=== PATIENT | female | born 1995 | race Caucasian/White ===

== ENCOUNTER 2017-05-17 20:37 | Emergency (ER) | payer OTHER, SELFPAY | END 2017-05-17 22:14 | disposition home or self-care (01) | PROVIDERS: Emergency Provider Emergency Medicine; Family Provider Emergency Medicine; Visit Provider Emergency Medicine | DX: O26.892 Other specified pregnancy related conditions, second trimester (principal); R10.2 Pelvic and perineal pain; Z3A.16 16 weeks gestation of pregnancy | CPT/HCPCS: 80053; 81001; 81025; 85025; 99283 ==

== ENCOUNTER → 2017-06-23 12:54 | Outpatient (CLI) | payer OTHER, SELFPAY ==
--- NOTE | 2017-06-23 14:00 | US_ITS ---
US OB /maternal detail, US OB f/u add gest: INDICATION: 20 gestation, anatomy scan ITS.REASON: 20 wk ob anatomy [id number] ORDERING PHYSICIAN: Rodrigo Lawler MD PATIENT AGE: 21 years TECHNIQUE: ultrasound transabdominal scanning. COMPARISON: No previous relevant studies. FINDINGS: There is a twin gestation present. Both fetuses are in breech presentation. There are 2 gestational sacs and 2 placentas. Fetus a is breech with a posterior placenta. Fetus is active and anatomy seen is within normal limits. Fetus B is breech with an anterior placenta active and with normal anatomy.. There is average amount fluid. The cervix appears satisfactory. Closed and measuring 4 cm in length. Fetus A: Complete survey performed and was unremarkable on the submitted images as in PACS. No discrete anomalies identified on survey imaging by technologist. Active fetus. Three-vessel cord with satisfactory umbilical cord insertion. 4- chamber heart noted. Survey of brain & ventricles. Face and neck survey unremarkable. Diaphragm and chest views unremarkable. Abdomen: Both kidneys noted and unremarkable. Stomach noted and satisfactory. Spine: Survey of the spine satisfactory with no anomalies identified nor imaged. Both arms and legs noted. Amniotic Fluid: Adequate. Maternal adnexa: No significant findings. Measurements: Average ultrasound age 20 weeks 2 days. Gestational Age 21 weeks 1 day. Estimated due date by ultrasound age 611/08/2017. Estimated weight 346 g which is 11% based on last menstrual period. BPD = 20 weeks 2 days OFD = 19 weeks 6 days HC = 19 weeks 2 days AC = 20 weeks 0 days FL = 21 weeks 1 day Heart Rate = 152 bpm Cerebellum = 20 weeks 3 days Humerus = 20 weeks 3 days HC/AC is 1.12. CI is 82%. FL/BPD is 74%. FL/AC is 24%. Fetus B: Complete survey performed and was unremarkable on the submitted images as in PACS. No discrete anomalies identified on survey imaging by technologist. Active fetus. Three-vessel cord with satisfactory umbilical cord insertion. 4- chamber heart noted. Survey of brain & ventricles. Face and neck survey unremarkable. Diaphragm and chest views unremarkable. Abdomen: Both kidneys noted and unremarkable. Stomach noted and satisfactory. Spine: Survey of the spine satisfactory with no anomalies identified nor imaged. Both arms and legs noted. Amniotic Fluid: Adequate. Maternal adnexa: No significant findings. Measurements: Average ultrasound age 20 weeks 3 days. Gestational Age 21 weeks 1 day. Estimated due date by ultrasound age 611/07/2017. Estimated weight 355 g grams. 15th percentile BPD = 20 weeks 4 days OFD = 20 weeks 5 days HC = 19 weeks 6 days AC = 20 weeks 6 days FL = 20 weeks 2 days Heart Rate = 156 BPM Cerebellum = 20 weeks 4 days Humerus = 20 weeks 3 days HC/AC is 1.10. CI is 79%. FL/BPD is 68%. FL/AC is 21%. IMPRESSION: There is a live twin gestation with an average ultrasound age of 20 weeks 2 days and an estimated due date of 11/07/2017. There has been adequate progression compared to an ultrasound of 04/12/2017. motion and heart activity noted with no obvious anatomic anomalies. Please see above for detail.
== END ==
PROVIDERS: Family Provider Emergency Medicine; PCP Emergency Medicine; Visit Provider Nurse Practitioner Obstetrics & Gynecology
DX: Z36.0 Encounter for antenatal screening for chromosomal anomalies (principal); Z37.2 Twins, both liveborn
CPT/HCPCS: 76811; 76816

== ENCOUNTER 2017-07-15 18:46 | Outpatient (CLI) | payer OTHER, SELFPAY ==
--- NOTE | 2017-07-15 | US_ITS ---
US OB >= 14 weeks Fetus, US OB transvaginal, US OB >= 14 wk fetus add gest: INDICATION: labor, twin gestation ITS.REASON: 24 WK LABOR-- DR RICO PRESENT AND WANTED LIMITED ORDERING PHYSICIAN: Philip Owen MD PATIENT AGE: 22 years TECHNIQUE: ultrasound transabdominal scanning. COMPARISON: 06/23/2017. FINDINGS: There is a twin gestation present. Fetus A is cephalic with posterior placenta. There are 2 gestational sacs. Fetus A heart tones are present with an FHR of 1 33 bpm. Fetus B is also cephalic with an anterior placenta. Fetus B heart rate is 140 bpm. Biometric measurements were not obtained. Endovaginal exam performed showing a closed cervix with a 3.3 cm length. IMPRESSION: Live twin gestation as described above. movement and heart tones noted in the cervix appears closed
[2017-07-15 19:10] VITALS: BP 132/84; PULSE 101; RESP 18; TEMP 36.9; O2SAT 98; BMI 39.1
[2017-07-15 20:02] LABS: Microscopic, Urine URINE MICROSCOPIC (MICROSCOPIC)
[2017-07-15 20:08] LABS: Appearance,Urine SL CLOUDY (Clear); Bilirubin,Urine Negative (Negative); Blood, Urine Negative (Negative); Color,Urine YELLOW (Yellow); Glucose,Urine (UA) Negative (Negative); Ketones,Urine Negative (Negative); Leukocyte Esterase,Urine Negative (Negative); Nitrate,Urine Negative (Negative); Protein,Urine Negative (Negative); Specific Gravity, Urine >= 1.030 (1.005-1.030); Urobilinogen,Urine 0.2 EU/dl (0.2)
[2017-07-15 20:10] LABS: Amorphous Sediment,Urine Trace /lpf
== END 2017-07-15 21:04 | disposition home or self-care (01) ==
LOC: OBOUT 18:49 → OB 18:52
PROVIDERS: Obstetrics & Gynecology; PCP Nurse Practitioner Obstetrics & Gynecology; Visit Provider Obstetrics & Gynecology
DX: O62.9 Abnormality of forces of labor, unspecified (principal); Z3A.24 24 weeks gestation of pregnancy
CPT/HCPCS: 59025; 76805; 76810; 76830; 81001

== ENCOUNTER 2017-08-17 13:09 | Outpatient (CLI) | payer OTHER, SELFPAY ==
[2017-08-17 13:23] VITALS: BP 130/84; PULSE 104; RESP 18; TEMP 36.7; O2SAT 98; BMI 38.7
== END 2017-08-17 13:58 | disposition home or self-care (01) ==
LOC: OBOUT 13:10 → OB 13:11
PROVIDERS: PCP Emergency Medicine; Visit Provider Nurse Practitioner Obstetrics & Gynecology
DX: O60.03 Preterm labor without delivery, third trimester (principal); Z3A.29 29 weeks gestation of pregnancy
CPT/HCPCS: 96372

== ENCOUNTER 2017-08-18 13:50 | Outpatient (CLI) | payer OTHER, SELFPAY ==
[2017-08-18 14:09] VITALS: BP 121/73; PULSE 106; RESP 18; TEMP 36.4; O2SAT 98; BMI 38.7
== END 2017-08-18 14:45 | disposition home or self-care (01) ==
LOC: OBOUT 13:51 → OB 13:52
PROVIDERS: PCP Emergency Medicine; Visit Provider Nurse Practitioner Obstetrics & Gynecology
DX: O60.03 Preterm labor without delivery, third trimester (principal); Z3A.29 29 weeks gestation of pregnancy
CPT/HCPCS: 96372

== ENCOUNTER 2017-08-21 16:30 | Outpatient (CLI) | payer OTHER, SELFPAY ==
--- NOTE | 2017-08-21 | US_ITS ---
US OB >= 14 weeks Fetus, US OB >= 14 wk fetus add gest, US OB biophysical profile, US SD Ratio umbilcal artery, US OB biophysical profile, US SD Ratio umbilcal artery: INDICATION: ITS.REASON: 09/03 TWIN PREG W/ ?PROM ORDERING PHYSICIAN: Philip Owen MD PATIENT AGE: 22 years TECHNIQUE: ultrasound transabdominal scanning. COMPARISON: 06/23/2017 There is a live twin gestation. Dichorionic diamniotic. Fetus A is in the cephalic position with a posterior placenta. Average ultrasound age of fetus a is 28 weeks 1 day with an estimated due date of 11/12/2017. Estimated weight is 1104 g 2 percentile according to last menstrual period all parameters correlate. Biophysical profile of fetus a is 8 of 8. Umbilical artery evaluation shows an SD ratio of 2.7 with a resistive index of 0.63. The placenta of fetus a is posterior and grade 2. No obvious anomalies. This however is not a dedicated knee exam. Fetus B is in breech position with an anterior placenta. Average ultrasound age of fetus B is 28 weeks 1 day with an estimated due date of 11/12/2017. All parameters correlate. Estimated weight of fetus B is 1192 g which is 6 percentile. Umbilical artery evaluation shows an SD ratio of 2.6 with a resistive index of 0.62. Biophysical profile is 8 of 8. The placenta is anterior and grade 1. Amniotic fluid index is not performed. Visually, no evidence of oligohydramnios. IMPRESSION: Live twin gestation at 28 weeks 1 day. Estimated due date is 11/12/2017 Biophysical profile is 8 of 8 for both fetuses Umbilical artery evaluation of both fetuses are unremarkable. Fetus A is 2nd percentile in estimated weight Fetus B is 6 percentile in estimated weight
[2017-08-21 16:42] VITALS: BMI 39.2
[2017-08-21 17:12] LABS: Microscopic, Urine URINE MICROSCOPIC (MICROSCOPIC)
[2017-08-21 17:16] VITALS: BP 127/82; PULSE 95; RESP 18; TEMP 36.7; O2SAT 97; BMI 39.2
[2017-08-21 17:21] LABS: Appearance,Urine SL CLOUDY (Clear); Bilirubin,Urine Negative (Negative); Blood, Urine Negative (Negative); Color,Urine YELLOW (Yellow); Glucose,Urine (UA) Negative (Negative); Ketones,Urine Negative (Negative); Leukocyte Esterase,Urine Negative (Negative); Nitrate,Urine Negative (Negative); Protein,Urine Negative (Negative); Specific Gravity, Urine >= 1.030 (1.005-1.030); Urobilinogen,Urine 0.2 EU/dl (0.2)
[2017-08-21 17:23] LABS: Fetal Membrane Rupture (Rapid) Negative (Negative)
[2017-08-21 17:29] LABS: Bacteria,Urine 3+ /lpf; Calcium Oxalate Crystals,Urine 2+ /lpf; Mucus,Urine 2+ /lpf
[2017-08-22 00:27] LABS: Microscopic, Urine URINE MICROSCOPIC (MICROSCOPIC)
[2017-08-22 00:32] LABS: Appearance,Urine CLEAR (Clear); Bilirubin,Urine Negative (Negative); Blood, Urine 2+ (Negative); Color,Urine YELLOW (Yellow); Glucose,Urine (UA) Negative (Negative); Ketones,Urine Negative (Negative); Leukocyte Esterase,Urine Negative (Negative); Nitrate,Urine Negative (Negative); PH,Urine 6.5 (5.0-8.5); Protein,Urine Negative (Negative); Urobilinogen,Urine 0.2 EU/dl (0.2)
== END 2017-08-21 19:10 | disposition home or self-care (01) ==
LOC: OBOUT 16:33 → OB 16:34
PROVIDERS: PCP Emergency Medicine; Visit Provider Obstetrics & Gynecology
DX: O60.03 Preterm labor without delivery, third trimester (principal); Z3A.29 29 weeks gestation of pregnancy
CPT/HCPCS: 59025; 76805; 76810; 76819; 76820; 81001; 84112; 87086

== ENCOUNTER 2017-08-21 22:00 | Outpatient (CLI) | payer OTHER, SELFPAY ==
[2017-08-21 22:03] VITALS: BP 116/69; PULSE 96; RESP 17; TEMP 36.9; O2SAT 96; BMI 39.1
== END 2017-08-22 00:40 | disposition home or self-care (01) ==
LOC: OBOUT 22:01 → OB 22:01
PROVIDERS: PCP Emergency Medicine; Visit Provider Obstetrics & Gynecology
DX: O20.9 Hemorrhage in early pregnancy, unspecified (principal); Z3A.29 29 weeks gestation of pregnancy
CPT/HCPCS: 59025

== ENCOUNTER 2017-09-08 15:24 | Outpatient (CLI) | payer MEDICAID, SELFPAY ==
[2017-09-08 13:50] VITALS: BP 126/70; PULSE 120; RESP 18; TEMP 36.6
== END 2017-09-08 15:25 | disposition home or self-care (01) ==
LOC: LAB 15:25
PROVIDERS: Visit Provider Nurse Practitioner Obstetrics & Gynecology
DX: Z34.90 Encounter for supervision of normal pregnancy, unspecified, unspecified trimester (principal)
CPT/HCPCS: 36415; 96372; J2790

== ENCOUNTER 2017-09-19 13:54 | Outpatient (CLI) | payer MEDICAID, SELFPAY ==
[2017-09-19 14:03] VITALS: BMI 39.6
[2017-09-19 14:19] LABS: Microscopic, Urine URINE MICROSCOPIC (MICROSCOPIC)
[2017-09-19 14:20] LABS: Appearance,Urine CLOUDY (Clear); Bilirubin,Urine Negative (Negative); Blood, Urine Negative (Negative); Color,Urine YELLOW (Yellow); Glucose,Urine (UA) Negative (Negative); Ketones,Urine Negative (Negative); Leukocyte Esterase,Urine Negative (Negative); Nitrate,Urine Negative (Negative); Protein,Urine TRACE (Negative); Specific Gravity, Urine >= 1.030 (1.005-1.030); Urobilinogen,Urine 0.2 EU/dl (0.2)
[2017-09-19 14:24] VITALS: BP 128/82; PULSE 104; RESP 18; TEMP 36.7; O2SAT 96; BMI 39.6
[2017-09-19 14:26] LABS: Bacteria,Urine 3+ /lpf; Mucus,Urine 3+ /lpf
== END 2017-09-19 15:03 | disposition home or self-care (01) ==
LOC: OBOUT 13:55 → OB 13:57
PROVIDERS: PCP Nurse Practitioner Obstetrics & Gynecology; Visit Provider Nurse Practitioner Obstetrics & Gynecology
DX: O60.03 Preterm labor without delivery, third trimester (principal); Z3A.33 33 weeks gestation of pregnancy
CPT/HCPCS: 59025; 81001; 87086

== ENCOUNTER → 2017-09-30 14:10 | Outpatient (REF) | payer MEDICAID, SELFPAY | LOC: LAB 14:10 | PROVIDERS: Visit Provider Nurse Practitioner Obstetrics & Gynecology | DX: Z34.90 Encounter for supervision of normal pregnancy, unspecified, unspecified trimester (principal) | CPT/HCPCS: 86403 ==

== ENCOUNTER 2017-10-03 15:16 | Outpatient (CLI) | payer MEDICAID, SELFPAY ==
[2017-10-03 15:24] VITALS: BMI 39.9
[2017-10-03 15:35] VITALS: BP 117/77; PULSE 99; RESP 18; TEMP 36.7; O2SAT 97; BMI 39.9
--- NOTE | 2017-10-03 17:07 | HMH.ACPN2 ---
Internal Medicine - PN: Subj *Date: 10/03/17 *Time: 17:07 Interval history: She was seen in my office earlier today for an ultrasound and her blood pressure was 130/110. She was slightly red in the face. As result of that we had her come over to labor and delivery for observation. Exam Vital signs and Labs for Last 24 Hours: Temp Pulse Resp BP Pulse Ox 98.1 F 99 H 18 117/77 97 10/03/17 15:35 10/03/17 15:35 10/03/17 15:35 10/03/17 15:35 10/03/17 15:35 I & O for Last 24 hours: Intake & Output 10/01/17 10/02/17 10/03/17 10/04/17 11:59 11:59 11:59 11:59 Weight 233 lb - Constitutional no acute distress Assessment and Plan (1) Twin Current visit: Yes Status: Acute Category: Medical Code(s): O30.009 - Twin , unspecified number of placenta and unspecified number of amniotic sacs, unspecified trimester - Assessment and plan all Dx Assessment and Plan for all problems:: She was observed for a couple of hours this afternoon and her blood pressures have remained normal. She denies any headache or scotomata. She is being seen tomorrow at [facility] and will follow up with me in 48 hours.
== END 2017-10-03 17:05 | disposition home or self-care (01) ==
LOC: OBOUT 15:18 → OB 15:19
PROVIDERS: PCP Nurse Practitioner Obstetrics & Gynecology; Visit Provider Nurse Practitioner Obstetrics & Gynecology
DX: O16.3 Unspecified maternal hypertension, third trimester (principal); Z3A.35 35 weeks gestation of pregnancy
CPT/HCPCS: 59025

== ENCOUNTER → 2017-10-20 16:05 | Outpatient (CLI) | payer MEDICAID, SELFPAY ==
[2017-10-20 17:06] LABS: Basophils % 0.2 % (0.1-2.0); Eosinophils # 0.1 K/mm3 (0.0-0.4); Eosinophils % 0.5 % (0.1-12.0); Hematocrit 37.5 % (37.0-47.0); Hemoglobin 12.4 g/dL (12.2-16.2); Lymphocytes # 2.6 K/mm3 (0.7-4.5); Lymphocytes % 21.8 K/mm3 (10-50); Mean Corpuscular HGB Conc 33.1 g/dL (31.8-35.4); Mean Corpuscular Volume 87.7 fl (81-99); Mean Platelet Volume 11.8 fl (7.4-10.4); Monocytes # 0.6 K/mm3 (0.1-1.0); Monocytes % 5.3 % (1.7-9.3); Neutrophils # 8.5 K/mm3 (1.8-7.8); Neutrophils % 72.2 % (37.0-80.0); Platelet Count 156 K/mm3 (142-424); Red Blood Count 4.27 M/mm3 (4.20-5.40); Red Cell Distribution Width 15.9 % (11.5-17.5); White Blood Count 11.8 K/mm3 (4.8-10.8)
[2017-10-20 18:29] LABS: Anion Gap 15.1 mEq/L (5-15); Blood Urea Nitrogen 9 mg/dL (7-18); Carbon Dioxide 24 mmol/L (21.0-32.0); Chloride 105 mmol/L (98-107); Creatinine,Serum 0.85 mg/dL (0.55-1.02); Estimated Glomerular Filt Rate 84 ml/min (>60); GFR (African American) 101 ML/MIN (>60); Glucose 81 mg/dL (74-106); Potassium 4.1 mmoL/L (3.5-5.1); Sodium 140 mmol/L (136-145)
[2017-10-22 08:22] LABS: Rapid Plasma Reagin Ab Titer Non Reactive (NonRea<1:1)
[2017-10-22 19:35] LABS: HIV Screen 4th Generation wRfx Non Reactive (Non Reactive); Hepatitis B Surface Antigen Negative (Negative); Hepatitis C Antibody <0.1 s/co ratio (0.0-0.9); Rubella Antibodies, IgG <0.90 index (Immune >0.99)
== END ==
PROVIDERS: Visit Provider Nurse Practitioner Obstetrics & Gynecology
DX: Z34.90 Encounter for supervision of normal pregnancy, unspecified, unspecified trimester (principal)
CPT/HCPCS: 36415; 80048; 85025; 86592; 86703; 86762; 86850; 86870; 87340; 87380; G0432

== ENCOUNTER 2017-10-21 05:18 | Inpatient (IN) ==
[2017-10-21 05:57] LABS: Basophils % 0.2 % (0.1-2.0); Eosinophils # 0.1 K/mm3 (0.0-0.4); Eosinophils % 0.7 % (0.1-12.0); Hematocrit 40.2 % (37.0-47.0); Lymphocytes # 3.4 K/mm3 (0.7-4.5); Lymphocytes % 31.6 K/mm3 (10-50); Mean Corpuscular HGB Conc 32.4 g/dL (31.8-35.4); Mean Corpuscular Hemoglobin 28.6 pg (27.0-31.2); Mean Corpuscular Volume 88.3 fl (81-99); Mean Platelet Volume 12.8 fl (7.4-10.4); Monocytes # 0.6 K/mm3 (0.1-1.0); Monocytes % 5.4 % (1.7-9.3); Neutrophils # 6.8 K/mm3 (1.8-7.8); Neutrophils % 62.1 % (37.0-80.0); Platelet Count 164 K/mm3 (142-424); Red Blood Count 4.56 M/mm3 (4.20-5.40); White Blood Count 10.9 K/mm3 (4.8-10.8)
[2017-10-21 06:03] LABS: Anion Gap 11.8 mEq/L (5-15); Potassium 3.8 mmoL/L (3.5-5.1)
--- NOTE | 2017-10-21 07:05 | Progress Note ---
[facility] Anesthesia Checklist - Patient Identification Patient Identification: Arm Band - Structural Data Admitted From: Home Planned Operative Procedure/s: repeat c/s Consent for Planned Operative Procedure(s) Verified: Yes Verified Documents: Surgical Consent, History and Physical - NPO Status Verified Time NPO: 00:00 - Additional verifications Anesthesia Reactions: No - Airway Assessment C-Spine Mobility Assessed: Yes (mp2) TMJ Mobility Assessed: Yes Dentition: Good Dentition - Neurological Assessment Level of Consciousness: Awake, Alert - Anesthesia Plan Anesthesia Risk discussed: Yes Anesthesia Plan: Verified ASA Class: II Anesthesia Type: Spinal [facility] Anesthesia HX I have reviewed the patient's past medical history: Yes Medical History: Denies:: Cancer, Diabetes Mellitus Type 1, Diabetes Mellitus Type 2, MRSA Other Surgeries: Yes: Amputation: No Fractures: No *Family Hx:: No significant family history, Cancer
--- NOTE | 2017-10-21 08:29 | Operative Note ---
Date of procedure: 10/21/17 Pre-op Diagnosis:: Previous section, twin , desire for sterilization Post-op Diagnosis:: Previous section, twin , desire for sterilization Procedure performed:: Repeat lower segment transverse section for twins, bilateral salpingectomy. Surgeon:: Rodrigo Lawler MD Bed And Breakfast Operator(s):: Dr. Owen EGYPTOLOGIST:: Deepak Johnson Anesthesia: spinal Estimated blood loss (mL): 600 Clinical Note:: She is a 22-year-old 3 now para 3 who was 38 weeks with twins. She has had previous sections and as result of that was offered repeat lower segment transverse section at term. She also expressed desire for sterilization. The risks and benefits as well as the irreversibility of bilateral salpingectomy were discussed with the patient prior to surgery. Operative findings:: She delivered 2 liveborn infants. Baby A was a liveborn female with Apgars of 5 at 1 minute and 7 at 5 minutes. Baby B was a liveborn male with Apgars of 8 at 1 minute and 9 at 5 minutes. Ovaries and tubes appeared normal. Operative note:: She was taken to the operating room where epidural anesthesia was found be adequate. She was prepped and draped in normal sterile fashion in the supine position with a leftward tilt. A Griffin catheter was in the bladder. A Pfannenstiel skin incision was made with knife then carried through to the underlying layer of fascia with cautery. The fascia was opened in the midline with cautery and extended laterally using Cole scissors. [place] clamps were applied to the superior aspect of the fascial incision which was tented up and the underlying rectus muscles dissected off using cautery. The [place] clamps were then applied to the inferior aspect of the fascial incision which in a similar fashion was tented up and the underlying rectus muscles dissected off using cautery. The rectus muscles were then in the midline, the peritoneum identified, and entered sharply with Metzenbaum scissors. This incision was then extended superiorly and inferiorly with cautery. We had good visualization of the bladder inferiorly. The bladder peritoneum was then opened in the midline and extended laterally using Metzenbaum scissors. A bladder flap was created digitally. The lower blade of the [place] was inserted so as to push the bladder out of the way. Transverse incision was made through the uterine muscle to the amnion. This incision was then extended laterally using fingers traction. The amnion was entered sharply with knife. Infant A's head head was then delivered atraumatically. This was followed by the anterior shoulder and the rest of the 's body atraumatically. The oropharynx and nasopharynx were bulb suctioned. The was then handed off to her Jesus Manuel who assigned Apgars of 5 at 1 minute and 7 at 5 minutes. We then ruptured the second amniotic sac and delivered the baby be who was a liveborn male child. He had a loose nuchal cord which was easily reduced. This is followed by the rest of the infant's body atraumatically. The cord was then doubly clamped and cut and the infant was handed Dr. Hazel who assigned Apgars of 8 at 1 minute and 9 at 5 minutes. Using gentle traction on the cord and countertraction on the fundus I was able to easily deliver the placentas intact. The had a normal three-vessel cord. The uterus was then cleared of clots and debris and exteriorized from the abdominal cavity. The uterine incision was then closed using running 0 Vicryl suture in a locked fashion. Is a small amount of bleeding on the left side and interrupted [id number] Vicryl sutures were used here to obtain excellent hemostasis. A second layer of the same suture was used to imbricate the first layer. The bladder peritoneum was then closed using running 2-0 Vicryl suture in a locked fashion. The gutters and cul-de-sac were then cleared of clots and debris. Once again hemostasis was assured. I then performed a bilateral salpingectomy by first grasping the distal end of the right tube. Using cautery I cauterized along the mesosalpinx. At the proximal end of the tube I cauterized across the tube close to the cornua. This was similar performed on the patient's left side. The tubes were sent to pathology. The uterus was then returned to the abdominal cavity. Once again hemostasis was assured. I elected to place a large piece of Gelfoam along the uterine incision. The peritoneum was grasped with Sonia clamps and closed using running 2-0 Vicryl suture. The rectus muscles were then reapproximated using running 0 Vicryl suture. The fascia was closed using running #1 Vicryl suture. The subcutaneous tissues were then irrigated with warm water followed by closure Kishore's fascia using running 2-0 Monocryl suture. The skin was closed with 2-0 Monocryl Statifix sutures starting from the middle and going lateral using separate sutures. The skin was then cleaned with Hibiclens. Sterile dressings were applied. She tolerated the procedure well and was taken to the recovery room in excellent condition. All sponges minute and needle counts were correct. Estimate a blood loss was approximately 600 mL. Condition: stable Disposition: PACU Specimens:: Bilateral fallopian tubes, placentas Complications:: None
--- NOTE | 2017-10-21 08:40 | Progress Note ---
[facility] Anesthesia Record Part II Discharge Time: 09:02 Destination: Obstetric Gynecology Dept PACU nurse assessment reviewed?: Yes Patient Condition:: Good Anesthesia Complications:: None
--- NOTE | 2017-10-21 08:40 | Progress Note ---
[facility] Anesthesia Record Part I Intake, IV Amount: 900 Estimated blood loss (mL): 600 Urine output (mL): 200 Blood Products used (#): none Blood Pressure: 115/60 SaO2: 100 Pulse Rate: 63 Respiratory Rate: 18 Temperature: 97.2 F Patient is:: Awake, Stable Stable to PACU at:: 08:32
--- NOTE | 2017-10-21 11:13 | Pharmacy Consult Notes ---
[facility] Pharmacy VTE Monitoring - Patient Demographics Admission date: 10/21/17 Report Date: 10/21/17 Time: 11:12 Allergies/Adverse Reactions: Patient Allergies No Known Allergies Allergy (Verified 10/17/17 10:13) Height: 1.57 m Weight: 107.615 kg - VTE Risk Labs: VTE Related Lab Results Hgb 13.0 g/dL (12.2-16.2) 10/21/17 05:45 Hct 40.2 % (37.0-47.0) 10/21/17 05:45 Plt Count 164 K/mm3 (142-424) 10/21/17 05:45 BUN 11 mg/dL (7-18) 10/21/17 05:45 Creatinine 0.81 mg/dL (0.55-1.02) 10/21/17 05:45 Estimated Creat Clear 86 mL/min (0-300) 10/21/17 05:45 Clinical Trial Participant: No - Prophylaxis VTE Prophylaxis Ordered?: Yes Types of VTE Prophylaxis: IPCS Knee High (POST OP)
[2017-10-21 13:39] LABS: Microscopic, Urine URINE MICROSCOPIC (MICROSCOPIC)
[2017-10-21 13:41] LABS: Appearance,Urine CLEAR (Clear); Bilirubin,Urine Negative (Negative); Blood, Urine Negative (Negative); Color,Urine YELLOW (Yellow); Glucose,Urine (UA) Negative (Negative); Ketones,Urine Negative (Negative); Leukocyte Esterase,Urine Negative (Negative); Protein,Urine Negative (Negative); Specific Gravity, Urine 1.015 (1.005-1.030); Urobilinogen,Urine 0.2 EU/dl (0.2)
[2017-10-21 14:27] LABS: Bacteria,Urine Trace /lpf; Hyaline Casts,Urine Occasional #/lpf (0); Mucus,Urine 3+ /lpf; RBC,Urine Occasional #/hpf (0-3); Squamous Epithelial Cell,Urine Occasional #/hpf (0-5); WBC,Urine Occasional #/hpf (0-3)
[2017-10-21 17:25] LABS: Hematocrit 34.3 % (37.0-47.0)
[2017-10-21 17:32] LABS: Hemoglobin 11.5 g/dL (12.2-16.2)
[2017-10-22 05:06] LABS: Basophils % 0.2 % (0.1-2.0); Eosinophils # 0.1 K/mm3 (0.0-0.4); Eosinophils % 0.8 % (0.1-12.0); Hematocrit 30.8 % (37.0-47.0); Lymphocytes % 17.4 K/mm3 (10-50); Mean Corpuscular HGB Conc 32.4 g/dL (31.8-35.4); Mean Corpuscular Hemoglobin 28.8 pg (27.0-31.2); Mean Platelet Volume 11.9 fl (7.4-10.4); Monocytes # 0.6 K/mm3 (0.1-1.0); Monocytes % 5.1 % (1.7-9.3); Neutrophils # 8.7 K/mm3 (1.8-7.8); Neutrophils % 76.6 % (37.0-80.0); Platelet Count 116 K/mm3 (142-424); Red Blood Count 3.46 M/mm3 (4.20-5.40); Red Cell Distribution Width 16.1 % (11.5-17.5); White Blood Count 11.4 K/mm3 (4.8-10.8)
--- NOTE | 2017-10-22 08:10 | Progress Note ---
Internal Medicine - PN: Subj *Date: 10/22/17 *Time: 08:09 Interval history: She continues to do well. She is eating and drinking and ambulating. She denies any shortness of breath or chest pain. Her lochia is normal. Her incision is clean and dry. Exam Vital signs and Labs for Last 24 Hours: Temp Pulse Resp BP Pulse Ox 98.0 F 64 18 116/70 100 10/21/17 09:02 10/21/17 09:02 10/21/17 09:02 10/21/17 09:02 10/21/17 09:02 Laboratory Results - last 24 hr 10/21/17 05:45: Antibody Identification Anti-D 10/21/17 07:30: Urine Color Yellow, Urine Appearance Clear, Urine pH 6.0, Ur Specific Hydes 1.015, Urine Protein Negative, Urine Glucose (UA) Negative, Urine Ketones Negative, Urine Blood Negative, Urine Nitrate Negative, Urine Bilirubin Negative, Urine Urobilinogen 0.2, Ur Leukocyte Esterase Negative, Urine RBC Occasional, Urine WBC Occasional, Ur Squamous Epith Cells Occasional, Urine Bacteria Trace, Hyaline Casts Occasional, Urine Mucus 3+ 10/21/17 17:10: Hgb 11.5 L D, Hct 34.3 L 10/22/17 04:45: WBC 11.4 H, RBC 3.46 L, Hgb 10.0 L D, Hct 30.8 L, MCV 89.0, MCH 28.8, MCHC 32.4, RDW 16.1, Plt Count 116 L D, MPV 11.9 H, Neut % (Auto) 76.6, Lymph % (Auto) 17.4, [place] % (Auto) 5.1, Eos % (Auto) 0.8, Baso % (Auto) 0.2, Neut # (Auto) 8.7 H, Lymph # (Auto) 2.0, [place] # (Auto) 0.6, Eos # (Auto) 0.1, Baso # (Auto) 0.0 I & O for Last 24 hours: Intake & Output 10/19/17 10/20/17 10/21/17 10/22/17 11:59 11:59 11:59 11:59 Intake Total 975 / 975 Output Total 200 / 200 Balance 775 / 775 Weight 237 lb 4 oz - Constitutional no acute distress Assessment and Plan (1) Previous section Current visit: Yes Status: Acute Category: Surgical Code(s): Z98.891 - History of uterine scar from previous surgery (2) Twin Current visit: No Status: Acute Qualifiers: Category: Medical Code(s): O30.009 - Twin , unspecified number of placenta and unspecified number of amniotic sacs, unspecified trimester - Assessment and plan all Dx Assessment and Plan for all problems:: She continues to do well. She is eating and drinking and ambulating. We will plan to send her home in 48 hours.
[2017-10-23 09:19] VITALS: BP 129/79
--- NOTE | 2017-10-23 11:04 | Discharge Summary ---
General - General Admission date:: 10/21/17 Discharge date: 10/23/17 HPI HPI: She is a 22-year-old 3 now para 3 who was 38 weeks gestational age with twins. Both were cephalic. She has had 2 previous sections and as result of that was offered repeat lower segment transverse section at term. She also expressed desire for sterilization and a bilateral salpingectomy was done at the time of . Hospital Course Hospital Course: On October 21, 2017 she underwent a repeat lower segment transverse section. She had a bilateral salpingectomy as well. She delivered to liveborn infants. Baby A was a liveborn female child weighing 5 lbs. 10 oz. with Apgars of 5 at 1 minute and 7 at 5 minutes. Baby B was a liveborn male child weighing 5 lbs. 12 oz. with Apgars of 8 at 1 minute and 9 at 5 minutes. She has done well and has remained afebrile throughout her hospitalization. She is eating and drinking and ambulating. She is bottlefeeding. She has A Rh-negative blood and both her babies were Rh- so she did not receive RhoGam. She is rubella immune and was group B streptococcus negative. She is discharged home to follow-up with me in approximately 2 weeks time. She will continue with her vitamins and iron. She was given a prescription for Percocet 5/325, 30 tablets. She had sutures in her incision but we will apply Steri-Strips and Mastisol prior to discharge. She is discharged home in good condition. Her engine test cell technician is Dr. Torres. Objective Vital signs: Temp Pulse Resp BP Pulse Ox 97.8 F 68 16 129/79 100 10/23/17 08:42 10/23/17 08:42 10/23/17 08:42 10/23/17 08:42 10/23/17 08:42 no acute distress DS: Diagnosis - Discharge Diagnosis (1) Previous section Status: Acute (2) Twin Status: Acute Discharge Plan - Patient Discharge Instructions ACTIVITY: No heavy lifting DIET: continue same diet - Follow up Plan Disposition: Home, Self-Senior Care Medications: Home Medications Medication Instructions Recorded Confirmed Type 1 tab PO DAILY 05/27/17 10/21/17 History vitamin,calcium,bkhoobxd-cezn-emkhz acid tablet RX: Ferrous Sulfate [Ferrous 325 mg PO DAILY 07/15/17 10/21/17 History Sulfate 325mg Tablet] RX: Fluoxetine HCl [Prozac] 10 mg PO DAILY 10/21/17 10/21/17 History Prescriptions/Medication Reconciliation: Continue vitamin,calcium,jhfavrkj-uupg-rnhbo acid tablet 1 tab PO DAILY RX: Ferrous Sulfate [Ferrous Sulfate 325mg Tablet] 325 mg PO DAILY RX: Fluoxetine HCl [Prozac] 10 mg PO DAILY
== END 2017-10-23 17:14 | disposition home or self-care (01) ==
LOC: OB 05:18
PROVIDERS: ADMIT Nurse Practitioner Obstetrics & Gynecology; ATTEND Obstetrics & Gynecology